=== PATIENT | male | born 1990 ===

== ENCOUNTER 2016-10-30 01:44 | Observation (INO) | payer OTHER ==
--- NOTE | 2016-10-30 02:06 | C.PDOC ---
History Of Present Illness Patient was brought to ER via EMS after mother called 911 stating that he might have taken extra doses of motrin in a possible suicide attempt. Mother does not know the amount pills or milligrams of the pills. Patient states he took 4 motrin for his back pain and denies suicidal ideation or other physical complaints. Time Seen by Provider: 10/30/16 02:05 Chief Complaint (Nursing): Back Pain History Per: Patient History/Exam Limitations: no limitations Onset/Duration Of Symptoms: Hrs Current Symptoms Are (Timing): Still Present Quality Of Discomfort: Other (No pain) Severity: None Pain Scale Rating Of: 0 Previous Symptoms: Back Pain Associated Symptoms: None Exacerbating Factor(s): Nothing Recent travel outside of the [place]: No Past Medical History Reviewed: Historical Data, Nursing Documentation, Vital Signs Vital Signs: Last Vital Signs Temp 98.1 F 10/30/16 06:17 Pulse 77 10/30/16 06:17 Resp 18 10/30/16 06:17 BP 119/72 10/30/16 06:17 Pulse Ox 100 10/30/16 06:17 Surgical History: No Surg Hx Family History: States: No Known Family Hx - Social History Hx Alcohol Use: No Hx Substance Use: No - Immunization History Hx Tetanus Toxoid Vaccination: No Hx Influenza Vaccination: No Hx Pneumococcal Vaccination: No Review Of Systems Constitutional: Negative for: Fever, Chills Gastrointestinal: Negative for: Nausea, Vomiting, Diarrhea Musculoskeletal: Positive for: Back Pain Psych: Negative for: Suicidal ideation Physical Exam - Physical Exam Appears: Non-toxic, Other (Flat affect) Skin: Warm, Dry Oral Mucosa: Moist Chest: Symmetrical, No Tenderness Cardiovascular: Rhythm Regular, No Murmur Respiratory: No Rales, No Rhonchi, No Wheezing Gastrointestinal/Abdominal: Soft, No Tenderness Neurological/Psych: Oriented x3 ED Course And Treatment - Laboratory Results Result Diagrams: 10/30/16 02:43 10/30/16 02:43 ECG: Interpreted By Me, Viewed By Me ECG Rhythm: Sinus Rhythm (70), Nonspecific Changes O2 Sat by Pulse Oximetry: 100 (Room air) Pulse Ox Interpretation: Normal - Radiology CXR: Interpreted by Me, Viewed By Me CXR Interpretation: No: Infiltrates, Fracture, Pnemothorax Progress Note: Blood work and urinalysis ordered. Crisis called for consult. Pt medically cleared for [facility] screener ED OBSERVATION Date of observation admission: 10/30/16 Time of observation admission: 05:16 - Observation admission statement Patient is being placed in observation because:: possible new onset schizophrenia - Goals of Observation Goals of observation are:: [facility] screener - Progress Note Progress Note: 10/30/16 05:16 vitals stable Disposition Counseled Patient/Family Regarding: Studies Performed, Diagnosis - Disposition Disposition Time: 02:06 Condition: FAIR - Clinical Impression Clinical Impression: Depression - Scribe Statement The provider has reviewed the documentation as recorded by the Scribsvetlana Sotelo All medical record entries made by the Mkibsvetlana were at my direction and personally dictated by me. I have reviewed the chart and agree that the record accurately reflects my personal performance of the history, physical exam, medical decision making, and the department course for this patient. I have also personally directed, reviewed, and agree with the discharge instructions and disposition. Physician Patient Turnover Patient Signed Over To: Zaki Adkins Handoff Comments: Pending [facility] screening
[2016-10-30 02:46] LABS: BASO # 0.1 K/uL (0.0-0.2); BASO % 0.9 % (0.0-2.0); EOS # 0.2 K/uL (0.0-0.7); EOS % 2.8 % (0.0-4.0); LYMPH # 2.2 K/uL (1.0-4.3); MEAN CELL VOLUME 90.7 fL (80.0-94.0); MEAN CORPUSCULAR HEMOGLOBIN 29.4 pg (27.0-31.0); MEAN CORPUSCULAR HGB CONC 32.5 g/dL (33.0-37.0); MEAN PLATELET VOLUME 10.7 fL (7.2-11.7); MONO # 0.5 K/uL (0.0-0.8); RED CELL DISTRIBUTION WIDTH 12.5 % (11.5-14.5); WHITE BLOOD COUNT 7.7 K/uL (4.8-10.8)
[2016-10-30 02:55] LABS: CHLORIDE 98 mmol/L (98-107); POTASSIUM 4.2 mmol/L (3.6-5.2); SODIUM 140 mmol/L (132-148)
[2016-10-30 02:57] LABS: ALB/GLOB RATIO 1.3 (1.0-2.1); AST/SGOT 23 U/L (17-59); BILIRUBIN,TOTAL 0.7 mg/dL (0.2-1.3); CARBON DIOXIDE 29 mmol/L (22-30); GFR AFRICAN-AMERICAN > 60; TOTAL PROTEIN 7.4 g/dL (6.3-8.3)
[2016-10-30 02:58] LABS: ALCOHOL SERUM < 10 mg/dl (0-10); ALKALINE PHOSPHATASE 61 U/L (38-126); ALT/SGPT 16 U/L (21-72); BLOOD UREA NITROGEN 18 mg/dL (9-20); CALCIUM 8.6 mg/dl (8.6-10.4); GLUCOSE,RANDOM 87 mg/dL (75-110)
[2016-10-30 03:29] LABS: RBC URINE < 1 /hpf (0-3); URINE BILIRUBIN NEGATIVE (NEGATIVE); URINE BLOOD NEGATIVE (NEGATIVE); URINE COLOR Straw (YELLOW); URINE GLUCOSE (UA) NORMAL (Normal); URINE KETONE NEGATIVE (NEGATIVE); URINE LEUKOCYTE ESTERASE NEG Leu/uL (Negative); URINE PROTEIN NEGATIVE (NEGATIVE); URINE UROBILINOGEN NORMAL mg/dL (0.2-1.0)
--- NOTE | 2016-10-30 08:29 | RAD ---
HISTORY: MEDICAL CLEARANCE COMPARISON: No prior. TECHNIQUE: Chest PA and lateral FINDINGS: LUNGS: No active pulmonary disease. PLEURA: No significant pleural effusion identified. No pneumothorax apparent. CARDIOVASCULAR: Normal. OSSEOUS STRUCTURES: No significant abnormalities. VISUALIZED UPPER ABDOMEN: Normal. OTHER FINDINGS: None. IMPRESSION: No active disease.
[2016-10-30 10:05] VITALS: TEMP 98.2; O2SAT 99
[2016-10-30 11:10] VITALS: BP 113/71; PULSE 63; RESP 18
--- NOTE | 2016-11-04 21:51 | CARD ---
APPROVED REPORT EKG Measurement Heart [id number] <Conclusion> Normal sinus rhythm Normal ECG
== END 2016-10-30 12:55 | disposition home or self-care (01) ==
LOC: C.ER 01:44 → C.9OBSV 05:18
PROVIDERS: ADMIT Emergency Medicine; ATTEND Emergency Medicine
DX: F20.9 Schizophrenia, unspecified (principal); T14.91 Suicide attempt
CPT/HCPCS: 71020; 80053; 81001; 85025; 99285; G0378; G0480

== ENCOUNTER 2017-05-13 12:14 | Emergency (ER) | payer MEDICAID ==
[2017-05-13 12:33] VITALS: BMI 28.2
[2017-05-13 12:35] VITALS: BP 107/69; PULSE 74; RESP 18; TEMP 98.2; O2SAT 99
== END 2017-05-13 12:33 | disposition left against medical advice (07) ==
LOC: C.ER 12:14
DX: Z02.89 Encounter for other administrative examinations (principal); M25.532 Pain in left wrist